=== PATIENT | female | born 1940 | race Caucasian/White ===

== ENCOUNTER → 2018-06-26 | Outpatient (CLI) | payer OTHER ==
[~2018-06-26] MED LIST: ASPI81CH; ATEN25; Hydrocodone-Ap1 EA20; LISI20; METF500C; NIACIN; PRAV20; Triamterene W/1 EACH
== END | disposition home or self-care (01) ==
LOC: LAB 12:00 → LAB SHORT 12:00
DX: R19.4 Change in bowel habit (principal)
CPT/HCPCS: 87493

== ENCOUNTER → 2018-11-29 | Outpatient (CLI) | payer OTHER ==
[~2018-11-29] MED LIST changes: +ASPI325 PO; +CHOL10002; +Vitamin C100 MG
[2018-12-02 14:06] LABS: Adenovirus F 40/41 Not Detected (NOT DETECT); Astrovirus Not Detected (NOT DETECT); Campylobacter Sp Not Detected (NOT DETECT); Cryptosporidium Not Detected (NOT DETECT); Cyclospora Cayetanensis Not Detected (NOT DETECT); E. Coli O157 Not Detected (NOT DETECT); Entamoeba Histolytica Not Detected (NOT DETECT); Enteroaggregative E. coli-EAEC Not Detected (NOT DETECT); Enteropathogenic E. coli-EPEC Not Detected (NOT DETECT); Enterotoxigenic E. coli-ETEC Not Detected (NOT DETECT); Giardia Lamblia Not Detected (NOT DETECT); Norovirus GI/GII Not Detected (NOT DETECT); Plesiomonas Shigelloides Not Detected (NOT DETECT); Rotavirus A Not Detected (NOT DETECT); Salmonella Sp Not Detected (NOT DETECT); Sapovirus Not Detected (NOT DETECT); Shiga Toxin-prod E. coli-STEC Not Detected (NOT DETECT); Shigella/Enteroin E. coli-EIEC Not Detected (NOT DETECT); Vibrio Cholerae Not Detected (NOT DETECT); Vibrio Sp Not Detected (NOT DETECT); Yersinia Enterocolitica Not Detected (NOT DETECT)
== END | disposition home or self-care (01) ==
LOC: LAB SHORT 11:30 → LAB 11:30 → LAB FUT 11-28 10:40
PROVIDERS: Internal Medicine Gastroenterology
DX: R19.7 Diarrhea, unspecified (principal)
CPT/HCPCS: 87507

== ENCOUNTER 2020-05-05 09:42 | Day surgery (SDC) | payer OTHER ==
[~2020-05-05] VITALS: Ht 170.2 cm; Wt 91.6 kg
[~2020-05-05 09:42] MED LIST changes: +Lopressor 25 mg25 MG PO; +PIOG30 PO
[2020-05-05] MEDS ORDERED: ASPI81CH PO (10:13)
== END 2020-05-05 11:56 | disposition home or self-care (01) ==
LOC: ORSCSDS 09:42
PROVIDERS: Orthopaedic Surgery
PROC: 3E0R33Z Introduction of Anti-inflammatory into Spinal Canal, Percutaneous Approach (ICD-10-PCS; principal; 2020-05-05 10:45)
DX: M54.5 Low back pain (principal); M54.16 Radiculopathy, lumbar region; I10 Essential (primary) hypertension; E66.9 Obesity, unspecified; Z68.32 Body mass index [BMI] 32.0-32.9, adult
CPT/HCPCS: 82947; J1040

== ENCOUNTER 2020-05-19 14:06 | Inpatient (IN) | payer OTHER ==
[~2020-05-19] VITALS: Ht 170.2 cm; Wt 93.6 kg
[~2020-05-19 14:06] MED LIST changes: +ASPI81CH PO
[2020-05-19 14:43] LABS: BASOPHILS ABSOLUTE AUTO 0.04 K/mm3 (0.00-0.23); BASOPHILS PERCENT AUTO 0 % (0-2); EOSINOPHILS ABSOLUTE AUTO 0.13 K/mm3 (0.00-0.68); EOSINOPHILS PERCENT AUTO 1 % (0-6); Hematocrit 42.5 % (33.0-51.0); Hemoglobin 12.9 g/dL (11.5-16.0); IMMATURE GRAN ABSOLUTE AUTO 0.03 K/mm3 (0.00-0.10); IMMATURE GRAN PERCENT AUTO 0 % (0-1); LYMPHOCYTES ABSOLUTE AUTO 1.51 K/mm3 (0.84-5.20); LYMPHOCYTES PERCENT AUTO 15 % (21-46); MONOCYTES ABSOLUTE AUTO 0.78 K/mm3 (0.16-1.47); MONOCYTES PERCENT AUTO 8 % (4-13); Mean Corpuscular HGB 28.7 pg (26.0-34.0); Mean Corpuscular HGB Conc 30.4 g/dL (31.5-36.5); Mean Corpuscular Volume 95 fL (80-100); Mean Platelet Volume 10.8 fL (9.1-12.4); NEUTROPHILS ABSOLUTE AUTO 7.67 K/mm3 (1.96-9.15); NEUTROPHILS PERCENT AUTO 75 % (41-73); Platelet Count 275 K/mm3 (150-400); RDW Standard Deviation 56.3 fL (35.1-46.3); Red Blood Cell Count 4.49 M/mm3 (3.80-5.20); White Blood Cell Count 10.16 K/mm3 (4.00-11.30)
[2020-05-19] MEDS ORDERED: ELIQUIS2.5 MG PO (14:48)
[2020-05-19 15:10] LABS: Free Thyroxine 1.2 ng/dL (0.70-1.60); Magnesium, Blood 2.2 mg/dL (1.6-2.4); Thyroid Stimulating Hormone 4.29 uIU/mL (0.360-4.800)
[2020-05-19 15:13] LABS: Alanine Aminotransfer (ALT/SGP 18 U/L (12-78); Albumin, Blood 2.6 g/dL (3.4-5.0); Albumin/Globulin Ratio 0.6 (0.8-1.8); Alk Phos 267 U/L (50-136); Anion Gap 7 mmol/L (6-16); Aspartate Aminotrans (AST/SGOT 35 U/L (12-37); Bilirubin, Total 0.4 mg/dL (0.1-1.0); Blood Urea Nitrogen 15 mg/dL (8-24); Bun/Creatinine Ratio 21.8 (12.0-20.0); CO2, Blood 26 mmol/L (21-32); Calcium, Blood 8.6 mg/dL (8.5-10.1); Chloride, Blood 110 mmol/L (98-108); Creatinine, Blood 0.69 mg/dL (0.40-1.00); Globulin, Blood 4.5 g/dL (2.2-4.0); Glomerular Filtration Rate >60 (60-); Glucose, Blood 150 mg/dL (70-99); Sodium, Blood 143 mmol/L (136-145); Total Protein, Blood 7.1 g/dL (6.4-8.2); Troponin I <0.015 ng/mL (0.000-0.040)
[2020-05-19 15:26] LABS: International Normalized Ratio 1.06; Prothrombin Time Results 11.3 Sec (9.7-11.5)
[2020-05-19] MEDS ORDERED: Pravastatin Sod80 MG PO (16:53)
[2020-05-19] MEDS ORDERED: ACTOS30 MG PO (16:54)
[2020-05-19] MEDS ORDERED: METOPROLOL TART25 MG PO (16:54)
[2020-05-19 19:24] LABS: Influenza A, PCR Negative (NEGATIVE); Influenza B, PCR Negative (NEGATIVE); Resp Syncytial Virus, PCR Negative (NEGATIVE); SARS-Cov-2 (COVID-19) PCR, MMC Negative (NEGATIVE)
--- NOTE | 2020-05-19 22:12 | NUR ---
PATIENT ARRIVED TO THE FLOOR AROUND 1999. SHE WAS ABLE TO TRANSFER TO THE BED SBA. LUIS IS AOX3, HAS BEEN HEALTHY MOST OF LIFE. STATES OVER THE PAST SEVERAL MONTHS SHE HAS NOTICED AN INCREASE IN FATIQUE, ABDOMINAL GIRTH, WEIGHT LOSS UP TO 65LBS, DECREASE IN APPETITE. OVER THE LAST WEEK SHE HAS BECOME MORE SOB. SHE WAS BROUGHT INTO ER TONIGHT DUE TO DIFFICULTY BREATHING. CT REVEALED METASTATIC LIVER CANCER WITH ABDOMINAL ACITES. ABDOMIN GIRTH IS LARGE ROUND AND TENDER AT TIMES, PRESSES UP INTO THE LUNG SPACE. REPORTS NO NAUSEA, REGULAR BM AND URINATION. LUNG SOUNDS ARE CLEAR DIMINISHED IN BASES. ON RA. VS WNL. DENIES PAIN. ABLE TO STILL MOVE AROUND JUST SOB WHEN DOING SO. SKIN SLIGHTLY DRY BUT INTACT, NO RASHES NOTED. HR REGULAR. GAVE HER SOME SUGAR FREE JELLOW AND WATER. SETTLED HER INTO THE ROOM. WILL CONITINUE TO MONITOR. CALL LIGHT IN REACH.
--- NOTE | 2020-05-20 04:34 | NUR ---
SHIFT SUMMARY: LUIS WAS ADMITTED FOR METASTATIC LIVER CANCER. ABDOMINAL GIRTH HAS INCREASED OVER THE LAST WEEK WITH INCREASE IN SOB. ABDOMIN IS FIRM, TENDER, AND PRESSING UP INTO LUNGS. LUNG SOUNDS DIMINISHED IN BASES. TELE IS SINUS WITH PVC'S. NO CHEST PAIN. NO PAIN. SBA TO THE BATHROOM. REGULAR BM AND URINATION. GAVE BM MEDS AND SHE WENT TO SLEEP FOR THE NIGHT. VS WNL, AFEBRILE. PLAN: US GUIDED PARACENTESIS, EVAL OF FLUID, ONCOLOGIST CONSULT, MONITOR CHEM BG, LABS, VS. PALLATIVE CARE CONSULT. REVIEW WITH .
[2020-05-20 04:56] LABS: BASOPHILS ABSOLUTE AUTO 0.05 K/mm3 (0.00-0.23); BASOPHILS PERCENT AUTO 1 % (0-2); EOSINOPHILS ABSOLUTE AUTO 0.18 K/mm3 (0.00-0.68); EOSINOPHILS PERCENT AUTO 2 % (0-6); Hematocrit 39.5 % (33.0-51.0); Hemoglobin 12.1 g/dL (11.5-16.0); IMMATURE GRAN ABSOLUTE AUTO 0.03 K/mm3 (0.00-0.10); IMMATURE GRAN PERCENT AUTO 0 % (0-1); LYMPHOCYTES ABSOLUTE AUTO 1.66 K/mm3 (0.84-5.20); LYMPHOCYTES PERCENT AUTO 19 % (21-46); MONOCYTES ABSOLUTE AUTO 0.83 K/mm3 (0.16-1.47); MONOCYTES PERCENT AUTO 10 % (4-13); Mean Corpuscular HGB 28.5 pg (26.0-34.0); Mean Corpuscular HGB Conc 30.6 g/dL (31.5-36.5); Mean Corpuscular Volume 93 fL (80-100); Mean Platelet Volume 10.9 fL (9.1-12.4); NEUTROPHILS ABSOLUTE AUTO 5.99 K/mm3 (1.96-9.15); NEUTROPHILS PERCENT AUTO 69 % (41-73); Platelet Count 240 K/mm3 (150-400); RDW Standard Deviation 54.8 fL (35.1-46.3); Red Blood Cell Count 4.24 M/mm3 (3.80-5.20); White Blood Cell Count 8.74 K/mm3 (4.00-11.30)
[2020-05-20 05:17] LABS: Alanine Aminotransfer (ALT/SGP 16 U/L (12-78); Albumin, Blood 2.4 g/dL (3.4-5.0); Albumin/Globulin Ratio 0.6 (0.8-1.8); Alk Phos 235 U/L (50-136); Anion Gap 6 mmol/L (6-16); Aspartate Aminotrans (AST/SGOT 30 U/L (12-37); Bilirubin, Total 0.5 mg/dL (0.1-1.0); Blood Urea Nitrogen 13 mg/dL (8-24); CO2, Blood 26 mmol/L (21-32); Calcium, Blood 8.5 mg/dL (8.5-10.1); Chloride, Blood 110 mmol/L (98-108); Creatinine, Blood 0.65 mg/dL (0.40-1.00); Globulin, Blood 4.2 g/dL (2.2-4.0); Glomerular Filtration Rate >60 (60-); Glucose, Blood 117 mg/dL (70-99); Magnesium, Blood 2.2 mg/dL (1.6-2.4); Potassium, Blood 3.9 mmol/L (3.5-5.5); Sodium, Blood 142 mmol/L (136-145); Total Protein, Blood 6.6 g/dL (6.4-8.2)
[2020-05-20 05:27] LABS: Source, Urine Clean Catch
[2020-05-20 05:29] LABS: Bilirubin, Urine Neg (Neg); Blood, Urine Neg (Neg); Glucose Qualitative, Urine Neg (Neg); Ketones, Urine Neg (Neg); Leukocyte Esterase, Urine 1+ (Neg); Nitrite, Urine Neg (Neg); Protein, Urine 2+ (Neg); Specific Gravity, Urine 1.015 (1.003-1.022); Urobilinogen, Urine NORM (Normal); pH, Urine 6.5 (5.0-8.0)
[2020-05-20 05:44] LABS: Appearance, Urine Clear (Clear); Color, Urine Yellow (P-Yellow); White Blood Cells, Urine 0-2 /hpf (0-5)
[2020-05-20 05:45] LABS: Bacteria Rare /hpf; Red Blood Cells, Urine 0-2 /hpf (0-2); Squamous Epithelial Cells Few /hpf (Few); Transitional Epithelial Cells Few /hpf (0-Rare)
[2020-05-20 08:24] LABS: International Normalized Ratio 1.05; Prothrombin Time Results 11.2 Sec (9.7-11.5)
[2020-05-20 11:00] LABS: Automated BF WBC Count 0.936 K/mm3 (0-999); Body Fluid WBC Count 936 /mm3 (0-999)
[2020-05-20 11:12] LABS: Albumin, Body Fluid 1.2 g/dL
[2020-05-20 11:16] LABS: pH, Body Fluid 7.9
[2020-05-20 11:20] LABS: Triglycerides, Body Fluid 31 mg/dL
[2020-05-20 11:26] LABS: Protein, Body Fluid 2.5 g/dL
[2020-05-20 11:33] LABS: Glucose, Body Fluid 171 mg/dL
[2020-05-20 11:35] LABS: Lactate Dehydrogenase, Body Fl 79 U/L
--- NOTE | 2020-05-20 11:38 | NUR ---
DISCHARGE PT STATE FEELING IMPROVED THIS AM, STATE FEELS READY TO GO HOME TODAY. ISTRATE IN TO ASSESS, PLACE ORDERS. SET AND EXHIBIT DESIGNER IN TO SEE HER ENCOURAGE HER TO CALL [facility] FOR HER . D/C INSTRUCT PROVIDED. SCRIPTS FAXED TO [facility]. IV D/C INTACT. PT DRESS/GATHER BELONGINGS IND. DECLINE SHOWER. SHE IS PLEASANT/APPRECIATIVE. ENROUTE TO PROVIDE TRANSPORTATION HOME. W/C ESCORT FROM HOSP PROVIDED.
[2020-05-20 11:57] LABS: RBC Count, Body Fluid 763 /mm3 (0-0)
[2020-05-20 12:01] LABS: Total Cell Count, Body Fluid 100
[2020-05-20 12:02] LABS: Appearance, Body Fluid Hazy (Clear); Color, Body Fluid L Yellow (None-Yellow)
--- NOTE | 2020-05-20 14:17 | NUR ---
Spiritual care visit conducted. Patient is sitting on EOB and alert. Patient immediately explains about her recent diagnosis, the rough conversations she has had this day with her children and grandchildren and the difficulty she is having processing all the information. Patient gets tearful at times as she talks about her fears and worries but also discusses her jeramy to which she leans to find strength and peace. I reinforce helpful attitudes and practices, normalize patient's experience, and provide inspirational scriptures, pastoral psychosocial rehabilitation counselor and prayer. Patient's spouse, [place], joins us at the end of the visit for the prayer. Patient responds well and shows signs of reduced stress and improved hope. I will continue to remain avialable to patient and family
--- NOTE | 2020-05-20 17:19 | NUR ---
SUMMARY PT IS A/O X4, PLEASANT AFFECT. THIS AM SHE STATE ABDOMINAL PRESSURE & SOME DIFFICULTY TAKING FULL BREATHS D/T ABD DISTENTION. SHE WENT OUT TO RADIOLOGY FOR PARACENTESIS, 1.25L ASCITES FLUID REMOVED, SAMPLE SENT TO LAB. SHE STATE SOME RELEIF FOLLOWING PROCEDURE. DR ZAIDI IN TO DISCUSS POSSIBLE CA DX. DR GRANGER IN FOR ONCOLOGY CONSULT. ORDER CT HEAD & CHEST, LIVER BIOPSY. BIOPSY WILL TAKE PLACE IN AM. IN TO VISIT, PT PROVIDED UPDATE FOR FAMILY. SHE HAS HAD EMOTIONAL MOMENTS TODAY, REASSURANCE PROVIDED. PALLIATIVE & PASTORAL CARE CONSULTS ARE ORDERED FOR SUPPORT. VSS.
--- NOTE | 2020-05-20 18:40 | NUR ---
[address] [facility] [place] [facility]--DID NOT TRANSFER TO INTERNET
--- NOTE | 2020-05-20 20:23 | NUR ---
ASSUMED CARE. LUIS APPEARS TO BE DOWN A LITTLE WITH THE DX OF CANCER. ENCOURAGED HER TO KEEP POSITIVE THOUGHTS. SHE IS HOPING TO GO HOME AFTER TOMORROWS BIOPSY. SHE IS NOT SURE WHAT SHE IS GOING TO DO ABOUT THE CANCER, HER AND HER ARE DISCUSSING THE SITUATION. SHE DOES FEEL BETTER AFTER SHE HAD THE FLUID REMOVED. STATES SHE IS ABLE TO LAY FLAT ANG BREATH. LUNG SOUNDS ARE CLEAR. HR SINUS AT THIS TIME WITH PVC. DENIES ANY CHEST PAIN OR PALPITATIONS. BLOOD SUGAR STABLE. VS WNL. CALL LIGHT IN REACH.
[2020-05-21 05:09] LABS: BASOPHILS ABSOLUTE AUTO 0.06 K/mm3 (0.00-0.23); BASOPHILS PERCENT AUTO 1 % (0-2); EOSINOPHILS ABSOLUTE AUTO 0.11 K/mm3 (0.00-0.68); EOSINOPHILS PERCENT AUTO 1 % (0-6); Hematocrit 38.7 % (33.0-51.0); Hemoglobin 11.9 g/dL (11.5-16.0); IMMATURE GRAN ABSOLUTE AUTO 0.02 K/mm3 (0.00-0.10); IMMATURE GRAN PERCENT AUTO 0 % (0-1); LYMPHOCYTES ABSOLUTE AUTO 1.37 K/mm3 (0.84-5.20); LYMPHOCYTES PERCENT AUTO 16 % (21-46); MONOCYTES ABSOLUTE AUTO 0.66 K/mm3 (0.16-1.47); MONOCYTES PERCENT AUTO 8 % (4-13); Mean Corpuscular HGB 29.2 pg (26.0-34.0); Mean Corpuscular HGB Conc 30.7 g/dL (31.5-36.5); Mean Corpuscular Volume 95 fL (80-100); Mean Platelet Volume 11.1 fL (9.1-12.4); NEUTROPHILS ABSOLUTE AUTO 6.32 K/mm3 (1.96-9.15); NEUTROPHILS PERCENT AUTO 74 % (41-73); Platelet Count 211 K/mm3 (150-400); RDW Coefficient Variation 15.9 % (11.7-14.2); RDW Standard Deviation 56.1 fL (35.1-46.3); Red Blood Cell Count 4.08 M/mm3 (3.80-5.20); White Blood Cell Count 8.54 K/mm3 (4.00-11.30)
[2020-05-21 05:36] LABS: Alanine Aminotransfer (ALT/SGP 16 U/L (12-78); Albumin, Blood 2.3 g/dL (3.4-5.0); Albumin/Globulin Ratio 0.6 (0.8-1.8); Alk Phos 236 U/L (50-136); Anion Gap 6 mmol/L (6-16); Aspartate Aminotrans (AST/SGOT 28 U/L (12-37); Bilirubin, Total 0.4 mg/dL (0.1-1.0); Blood Urea Nitrogen 15 mg/dL (8-24); Bun/Creatinine Ratio 19.3 (12.0-20.0); CO2, Blood 26 mmol/L (21-32); Calcium, Blood 8.3 mg/dL (8.5-10.1); Chloride, Blood 109 mmol/L (98-108); Creatinine, Blood 0.78 mg/dL (0.40-1.00); Glomerular Filtration Rate >60 (60-); Glucose, Blood 122 mg/dL (70-99); Potassium, Blood 4.3 mmol/L (3.5-5.5); Sodium, Blood 141 mmol/L (136-145); Total Protein, Blood 6.3 g/dL (6.4-8.2)
--- NOTE | 2020-05-21 06:02 | NUR ---
SHIFT SUMMARY: AOX3, INDEPENDENT IN ROOM. ABDOMIN STILL ROUND BUT SOFTER THEN PREVIOUS DAY. NO PAIN. ABLE TO LAY FLAT AND MOVE WITH OUT SOB. APPETITE IS IMPROVED SOME. HAS NOT DECIDED HER ACTION PLAN FOR THE CANCER YET. STILL DISCUSSING IT WITH HER . IV AB COMPLETED, IV SL. SLEPT REST OF SHIFT WITH OCCATIONAL AWAKING. VS WNL, AFEBRILE. CALL LIGHT HAS REMAINED IN REACH. PLAN IS LIVER BIOPSY TODAY, FOLLOWUP WITH ONCOLOGIST.
--- NOTE | 2020-05-21 11:54 | NUR ---
AM ASSESSMENT PT IS NPO X MEDS/ICE CHIPS FOR LIVER BIOPSY TODAY. SHE IS PLEASANT, STATE ABD CONTINUES FIRM/DISTENDED HOWEVER NO PAIN, NO NAUSEA. DR FAULKNERTRATE STATE OK FOR HER TO D/C HOME 2HRS AFTER PROCEDURE, PLACE ORDERS. VSS.
--- NOTE | 2020-05-21 14:19 | NUR ---
Spiritual care visit conducted. Patient tells me that she will be going in for a biopsy in a few minutes. After patient catches me up on the events oflast evening and night, I ask patient if I could say a prayer for her and she voices that a prayer would be greatly appreciated. I gladly provide prayer. Patient reponds well and shows signs of reduced stress. I will continue to remain available to patient and family.
[2020-05-21] MEDS ORDERED: ACET325 PO (16:17)
[2020-05-21] MEDS ORDERED: LEVFLO500 PO (16:20)
[2020-05-21] MEDS ORDERED: FAMO20 PO (16:20)
[2020-05-21] MEDS ORDERED: AZO CRANBERRY PO (16:22)
[2020-05-21] MEDS ORDERED: HYDR1TAB94 PO (16:23)
[2020-05-21] MEDS ORDERED: ONDA4ODT MM (16:25)
--- NOTE | 2020-05-21 18:22 | NUR ---
SUMMARY THIS AM PT NPO FOR LIVER BIOPSY, SHE HAD PROCEDURE APPROX 1400. DR ZAIDI HAD INITIALLY PLANNED FOR HER TO GO HOME FOLLOWING HOWEVER RECONSIDER, HOLD D/C & OVERNITE TO ASSURE STABLE FOLLOWING BIOPSY. STATE WILL REASSESS PT IN AM & FOR SAFE D/C. VSS HAVE BEEN STABLE. SHE IS A/O X4, PLEASANT/COOPERATIVE. UP IND TO BR, GAIT STEADY. STATES ABDOMEN CONTINUES DISTENDED/FIRM HOWEVER MUCH IMPROVED FROM PREVIOUS DAY, EASIER TO BREATHE, LESS FEELING OF FULLNESS. SHE HAS HAD APPETITE TODAY W/O NAUSEA. SHE IS HOPEFUL FOR D/C IN AM AFTER DR ROSADO. IN TO VISIT THIS AFTERNOON, UPDATED.
--- NOTE | 2020-05-21 21:37 | NUR ---
ASSUMED CARE. LUIS STATES SHE IS DOING OK. SHE STILL CAN'T BELEIVE SHE HAS BEEN DX WITH CANCER. SHE STATED THAT SHE STILL FEELS LIKE DR. GRANGER IS GOING TO COME BACK AND TELL HER HE WAS WRONG. SHE MENTIONED SHE HAS ALOT OF SUPPORT FROM FAMILY AND FRIENDS. SOME PEOPLE HAVE TALKED TO HER ABOUT NATURAL WAYS. SHE IS JUST NOT SURE WHAT TO DO WITH SELF AT THIS TIME. SHE TRIES TO HOLD A GOOD SPIRIT BUT YOU CAN SEE IT IN HER FACE THAT SHE IS JUST HOLDING IT ALL IN. SHE DENIED ANY PAIN OR DISCOMFORT. STATES SHE IS FEELING MUCH BETTER THEN SHE HAS BEEN. DID SPEAK TO DR. ZAIDI REGARDING A SLEEP AID. GOT TYLENOL PM SHE TAKES IT AT HOME. ADMINISTERED WITH NIGHT MEDS. NO OTHER NEEDS TO NOTE. CALL LIGHT IS IN REACH.
[2020-05-22 04:49] LABS: BASOPHILS ABSOLUTE AUTO 0.03 K/mm3 (0.00-0.23); BASOPHILS PERCENT AUTO 0 % (0-2); EOSINOPHILS ABSOLUTE AUTO 0.16 K/mm3 (0.00-0.68); EOSINOPHILS PERCENT AUTO 2 % (0-6); Hematocrit 38.8 % (33.0-51.0); Hemoglobin 11.6 g/dL (11.5-16.0); IMMATURE GRAN ABSOLUTE AUTO 0.04 K/mm3 (0.00-0.10); IMMATURE GRAN PERCENT AUTO 1 % (0-1); LYMPHOCYTES ABSOLUTE AUTO 1.43 K/mm3 (0.84-5.20); LYMPHOCYTES PERCENT AUTO 17 % (21-46); MONOCYTES ABSOLUTE AUTO 0.86 K/mm3 (0.16-1.47); MONOCYTES PERCENT AUTO 10 % (4-13); Mean Corpuscular HGB 28.2 pg (26.0-34.0); Mean Corpuscular HGB Conc 29.9 g/dL (31.5-36.5); Mean Corpuscular Volume 94 fL (80-100); NEUTROPHILS PERCENT AUTO 70 % (41-73); Platelet Count 204 K/mm3 (150-400); RDW Coefficient Variation 16.1 % (11.7-14.2); RDW Standard Deviation 56.2 fL (35.1-46.3); Red Blood Cell Count 4.11 M/mm3 (3.80-5.20); White Blood Cell Count 8.42 K/mm3 (4.00-11.30)
[2020-05-22 05:12] LABS: Alanine Aminotransfer (ALT/SGP 19 U/L (12-78); Albumin, Blood 2.3 g/dL (3.4-5.0); Albumin/Globulin Ratio 0.6 (0.8-1.8); Alk Phos 236 U/L (50-136); Anion Gap 6 mmol/L (6-16); Aspartate Aminotrans (AST/SGOT 37 U/L (12-37); Bilirubin, Total 0.3 mg/dL (0.1-1.0); Blood Urea Nitrogen 19 mg/dL (8-24); Bun/Creatinine Ratio 22.4 (12.0-20.0); CO2, Blood 26 mmol/L (21-32); Calcium, Blood 8.7 mg/dL (8.5-10.1); Chloride, Blood 109 mmol/L (98-108); Creatinine, Blood 0.85 mg/dL (0.40-1.00); Glomerular Filtration Rate >60 (60-); Glucose, Blood 101 mg/dL (70-99); Potassium, Blood 4.1 mmol/L (3.5-5.5); Sodium, Blood 141 mmol/L (136-145); Total Protein, Blood 6.3 g/dL (6.4-8.2)
--- NOTE | 2020-05-22 05:25 | NUR ---
SHIFT SUMMARY: LUIS TRIED TO GET SLEEP TONIGHT, EVEN TOOK BOTH OF HER TYLENOL PM BUT SHE COULD NOT SLEEP STEADLY. SHE FELL ASLEEP FOR SEVERAL HOURS THEN WAS UP AGAIN. SHE IS REALLY LOOKING FORWARD TO DISCHARGE THIS MORNING AFTER MD SEE'S HER. SHE DISCUSSED HAVING GOOD FAMILY AND FRIEND SUPPORT FOR WHEN SHE GOES HOME. SHE IS STILL IN DISBELEIF THAT SHE HAS CANCER. SHE STATED LAST NIGHT THAT SHE STILL FEELS DR. GRANGER WILL COME BACK AND SAY HE WAS WRONG SHE DOES NOT HAVE IT. ENCOURAGED HER TO DISCUSS THINGS WITH HIM ON QUESTIONS SHE HAS LIKE JUST HAW BAD IT IS, WHATS HER OPTIONS. VS HAVE REMAINED STABLE. SHE HAD NO ACUTE CHANGES. ABDOMIN REMAINS THE SAME WITH MODERATE DISTENTION, FIRMNESS, NO NAUSEA. CALL LIGHT HAS REMAINED IN REACH. PLAN IS DC HOME TODAY.
[2020-05-22] MEDS ORDERED: ROBITUSSIN DM PO (10:44)
[2020-05-22] MEDS ORDERED: XARELTO20 MG PO (10:46)
--- NOTE | 2020-05-22 10:54 | NUR ---
Clinical Visit: Pt is alert, oriented, pleasant. She reports she is feeling much better and she is going home today. She expresses shock and dismay at her diagnosis and states, "I hope it is not what they say it is. I don't feel like I have cancer." She is not reporting pain. Pt reports that she has an advance directive at home. Encouraged to bring to the hospital if she returns for treatment later. Instructed that it is a good instrument for her family to have for her. She agrees. Pt reports that she has several friends and family members to support her though this. She has a and a daughter locally, along with her many friends. She has been talking to several of them during her hospitalization. No other concerns from her. Her biggest concern is her new cancer diagnosis. Will remain available. Pt is discharging home today.
--- NOTE | 2020-05-22 11:04 | NUR ---
PT DISCHARGED AND LEFT THE UNIT VIA WHEELCHAIR ASSIST, ALERT AND OEITNTED WITH NO COMPLAINTS OF PAIN OR SOB. LINES WERE DC'D AND WNL. PT EDUCATED ON SS TO LOOK OUT FOR AND WHEN TO REPORT TO ED. PT EDUCATED ON FU APPOINTMENTS AND HOME HEALTH CONSULT. PAPER SCRIPT PROVIDED AND BELOGINGS WITH PT.
== END 2020-05-22 11:01 | disposition home health service (06) | DRG 435 ==
LOC: ER 14:06 → MEDS 19:56
PROVIDERS: Emergency Medicine; Internal Medicine Hematology & Oncology; Physician Assistant; ADMIT Family Medicine
PROC: 0W9G3ZZ Drainage of Peritoneal Cavity, Percutaneous Approach (ICD-10-PCS; principal; 2020-05-20)
PROC: 0FB23ZX Excision of Left Lobe Liver, Percutaneous Approach, Diagnostic (ICD-10-PCS; 2020-05-21)
DX: C78.7 Secondary malignant neoplasm of liver and intrahepatic bile duct (principal); J96.01 Acute respiratory failure with hypoxia; J18.9 Pneumonia, unspecified organism; R18.0 Malignant ascites; I48.20 Chronic atrial fibrillation, unspecified; Z51.5 Encounter for palliative care; I10 Essential (primary) hypertension; E11.9 Type 2 diabetes mellitus without complications; Z20.828 Contact with and (suspected) exposure to other viral communicable diseases; Z79.84 Long term (current) use of oral hypoglycemic drugs
CPT/HCPCS: 0241U; 36415; 47000; 49083; 70470; 71045; 71260; 74177; 77012; 80053; 81001; 82042; 82105; 82140; 82378; 82945; 82947; 83605; 83615; 83735; 83880; 83986; 84145; 84157; 84439; 84443; 84478; 84484; 85025; 85610; 85730; 86301; 86304; 87086; 88307; 88342; 89051; 93005; 93010; 97162; 97165; 97530; 99285-25; A9270-GY; J1956; J2405; J7030; Q9967

== ENCOUNTER 2020-06-16 16:52 | Emergency (ER) | payer OTHER ==
[~2020-06-16] VITALS: Ht 170.2 cm; Wt 86.2 kg
[~2020-06-16 16:52] MED LIST changes: +ACET325 PO; +ACTOS30 MG PO; +AZO CRANBERRY PO; +ELIQUIS2.5 MG PO; +FAMO20 PO; +HYDR1TAB94 PO; +LEVFLO500 PO; +METOPROLOL TART25 MG PO; +ONDA4ODT MM; +Pravastatin Sod80 MG PO; +ROBITUSSIN DM PO; +XARELTO20 MG PO
[2020-06-16] MEDS ORDERED: XARELTO15 MG PO (17:51)
== END 2020-06-16 18:46 | disposition home or self-care (01) ==
LOC: ER 16:52
DX: I26.99 Other pulmonary embolism without acute cor pulmonale (principal); C78.7 Secondary malignant neoplasm of liver and intrahepatic bile duct; C80.1 Malignant (primary) neoplasm, unspecified; I48.91 Unspecified atrial fibrillation; E11.9 Type 2 diabetes mellitus without complications; I10 Essential (primary) hypertension; Z79.01 Long term (current) use of anticoagulants; Z79.899 Other long term (current) drug therapy
CPT/HCPCS: 36415; 71260; 74177; 80053; 82105; 82378; 83880; 84484; 85025; 85610; 86301; 93005; 93010; 99283-25; A9270; Q9967

== ENCOUNTER 2020-06-25 13:00 | Day surgery (SDC) | payer OTHER ==
[~2020-06-25] VITALS: Ht 170.2 cm; Wt 88.4 kg
[~2020-06-25 13:00] MED LIST changes: +XARELTO15 MG PO
[2020-06-25] MEDS ORDERED: XARELTO15 MG PO (13:42)
[2020-06-25] MEDS ORDERED: ABAT250V (13:42)
== END 2020-06-25 15:20 | disposition home or self-care (01) ==
LOC: ORSCSDS 13:00
PROVIDERS: Internal Medicine Gastroenterology
PROC: 0DB58ZX Excision of Esophagus, Via Natural or Artificial Opening Endoscopic, Diagnostic (ICD-10-PCS; principal; 2020-06-25 14:15)
PROC: 0DB78ZX Excision of Stomach, Pylorus, Via Natural or Artificial Opening Endoscopic, Diagnostic (ICD-10-PCS; principal; 2020-06-25 14:15)
DX: C79.9 Secondary malignant neoplasm of unspecified site (principal); K21.9 Gastro-esophageal reflux disease without esophagitis; K29.70 Gastritis, unspecified, without bleeding; I10 Essential (primary) hypertension; E11.9 Type 2 diabetes mellitus without complications; Z79.01 Long term (current) use of anticoagulants; Z79.899 Other long term (current) drug therapy
CPT/HCPCS: 82947; 88305; 88342; J2704; J7120

== ENCOUNTER 2020-08-10 13:43 | Observation (INO) | payer OTHER ==
[~2020-08-10] VITALS: Ht 170.2 cm; Wt 89.1 kg
[~2020-08-10 13:43] MED LIST changes: +ABAT250V
[2020-08-10 14:30] LABS: BASOPHILS ABSOLUTE AUTO 0.04 K/mm3 (0.00-0.23); BASOPHILS PERCENT AUTO 1 % (0-2); EOSINOPHILS ABSOLUTE AUTO 0.07 K/mm3 (0.00-0.68); EOSINOPHILS PERCENT AUTO 1 % (0-6); Hematocrit 37.6 % (33.0-51.0); Hemoglobin 11.8 g/dL (11.5-16.0); IMMATURE GRAN ABSOLUTE AUTO 0.04 K/mm3 (0.00-0.10); IMMATURE GRAN PERCENT AUTO 1 % (0-1); LYMPHOCYTES ABSOLUTE AUTO 0.86 K/mm3 (0.84-5.20); LYMPHOCYTES PERCENT AUTO 12 % (21-46); MONOCYTES ABSOLUTE AUTO 0.46 K/mm3 (0.16-1.47); MONOCYTES PERCENT AUTO 7 % (4-13); Mean Corpuscular HGB 28.4 pg (26.0-34.0); Mean Corpuscular HGB Conc 31.4 g/dL (31.5-36.5); Mean Corpuscular Volume 91 fL (80-100); Mean Platelet Volume 10.3 fL (9.1-12.4); NEUTROPHILS ABSOLUTE AUTO 5.57 K/mm3 (1.96-9.15); NEUTROPHILS PERCENT AUTO 79 % (41-73); Platelet Count 133 K/mm3 (150-400); RDW Coefficient Variation 17.9 % (11.7-14.2); RDW Standard Deviation 57.7 fL (35.1-46.3); Red Blood Cell Count 4.15 M/mm3 (3.80-5.20); White Blood Cell Count 7.04 K/mm3 (4.00-11.30)
[2020-08-10 14:47] LABS: Alanine Aminotransfer (ALT/SGP 14 U/L (12-78); Albumin, Blood 2.4 g/dL (3.4-5.0); Albumin/Globulin Ratio 0.6 (0.8-1.8); Alk Phos 235 U/L (50-136); Anion Gap 9 mmol/L (6-16); Aspartate Aminotrans (AST/SGOT 35 U/L (12-37); Bilirubin, Total 0.7 mg/dL (0.1-1.0); Blood Urea Nitrogen 15 mg/dL (8-24); Bun/Creatinine Ratio 25.1 (12.0-20.0); CO2, Blood 25 mmol/L (21-32); Calcium, Blood 8.4 mg/dL (8.5-10.1); Chloride, Blood 107 mmol/L (98-108); Globulin, Blood 3.9 g/dL (2.2-4.0); Glomerular Filtration Rate >60 (60-); Glucose, Blood 99 mg/dL (70-99); Sodium, Blood 141 mmol/L (136-145); Total Protein, Blood 6.3 g/dL (6.4-8.2)
[2020-08-10 17:09] LABS: Source, Urine Voided
[2020-08-10 17:17] LABS: Appearance, Urine Clear (Clear); Bilirubin, Urine Neg (Neg); Blood, Urine 1+ (Neg); Color, Urine Yellow (P-Yellow); Glucose Qualitative, Urine Neg (Neg); Ketones, Urine 3+ (Neg); Leukocyte Esterase, Urine Neg (Neg); Nitrite, Urine Neg (Neg); Protein, Urine Neg (Neg); Urobilinogen, Urine NORM (Normal); pH, Urine 6.5 (5.0-8.0)
[2020-08-10 17:38] LABS: Bacteria Rare /hpf; Red Blood Cells, Urine 0-2 /hpf (0-2); Squamous Epithelial Cells Not Seen /hpf (Few)
[2020-08-10 19:36] LABS: PO2 Arterial 86.1 mmHg (80-100); pH Blood Arterial 7.39 (7.35-7.45)
[2020-08-10] MEDS ORDERED: DEXA4 PO (19:57)
[2020-08-10] MEDS ORDERED: OXYC5 PO (19:58)
[2020-08-10] MEDS ORDERED: ONDA8 PO (20:10)
--- NOTE | 2020-08-11 02:31 | NUR ---
GI/PAIN: PATIENT VOMITED 200ML BRIGHT YELLOW EMESIS. PATIENT IS ALSO REPORTING BACK PAIN BUT ORAL OXYCODONE IS THE ONLY PAIN MED ORDERED, A CALL IS PLACED TO DR MONGE.
--- NOTE | 2020-08-11 03:09 | NUR ---
GI/PAIN: ORDERS WERE OBTAINED FOR FENTANYL AND ZOFRAN. BOTH MEDS WERE GIVEN, PATIENT REPORTING GOOD EFFECT FROM FENTANYL.
[2020-08-11 04:57] LABS: BASOPHILS ABSOLUTE AUTO 0.03 K/mm3 (0.00-0.23); BASOPHILS PERCENT AUTO 0 % (0-2); EOSINOPHILS ABSOLUTE AUTO 0.02 K/mm3 (0.00-0.68); EOSINOPHILS PERCENT AUTO 0 % (0-6); Hematocrit 37.1 % (33.0-51.0); Hemoglobin 11.6 g/dL (11.5-16.0); IMMATURE GRAN ABSOLUTE AUTO 0.04 K/mm3 (0.00-0.10); IMMATURE GRAN PERCENT AUTO 1 % (0-1); LYMPHOCYTES ABSOLUTE AUTO 1.26 K/mm3 (0.84-5.20); LYMPHOCYTES PERCENT AUTO 16 % (21-46); MONOCYTES ABSOLUTE AUTO 0.62 K/mm3 (0.16-1.47); MONOCYTES PERCENT AUTO 8 % (4-13); Mean Corpuscular HGB 28.1 pg (26.0-34.0); Mean Corpuscular HGB Conc 31.3 g/dL (31.5-36.5); Mean Corpuscular Volume 90 fL (80-100); Mean Platelet Volume 10.1 fL (9.1-12.4); NEUTROPHILS ABSOLUTE AUTO 5.85 K/mm3 (1.96-9.15); NEUTROPHILS PERCENT AUTO 75 % (41-73); Platelet Count 140 K/mm3 (150-400); RDW Coefficient Variation 18.1 % (11.7-14.2); RDW Standard Deviation 57.5 fL (35.1-46.3); Red Blood Cell Count 4.13 M/mm3 (3.80-5.20); White Blood Cell Count 7.82 K/mm3 (4.00-11.30)
[2020-08-11 05:29] LABS: Alanine Aminotransfer (ALT/SGP 14 U/L (12-78); Albumin, Blood 2.3 g/dL (3.4-5.0); Albumin/Globulin Ratio 0.6 (0.8-1.8); Alk Phos 216 U/L (50-136); Anion Gap 9 mmol/L (6-16); Aspartate Aminotrans (AST/SGOT 27 U/L (12-37); Bilirubin, Total 0.7 mg/dL (0.1-1.0); Blood Urea Nitrogen 16 mg/dL (8-24); Bun/Creatinine Ratio 21.2 (12.0-20.0); CO2, Blood 25 mmol/L (21-32); Calcium, Blood 8.2 mg/dL (8.5-10.1); Chloride, Blood 106 mmol/L (98-108); Creatinine, Blood 0.76 mg/dL (0.40-1.00); Glomerular Filtration Rate >60 (60-); Glucose, Blood 99 mg/dL (70-99); Potassium, Blood 4.1 mmol/L (3.5-5.5); Sodium, Blood 140 mmol/L (136-145); Total Protein, Blood 6.3 g/dL (6.4-8.2)
--- NOTE | 2020-08-11 08:00 | NUR ---
SHIFT SUMMARY: PATIENT HAD GOOD EFFECT FROM REGLAN AND FENTANYL. SLEPT THROUGHT THE SHIFT UNTIL MORNING AND REPORTED NAUSEA WAS RESOLVE UP AWAKENING. ABLE TO TRANSFER TO THE BATHROOM WITH GAIT BELT AND ASSIST OF ONE. BED ALARM IS ON FOR SAFETY.
--- NOTE | 2020-08-11 09:10 | NUR ---
Pt resting in bed upon arrival. Caremanager Korinaniyah at bedside assessing Pt. Listened as Lakisha asks questions. After Korinjessieissa leaves this RN remained behind. Pt appears lethargic and denies anxiety and dyspnea. Shortly into visit Pt reports mild headache and mild nausea due to the sun light. Closed curtins per Pt request. Pt denies need for anti nausea or pain medication at this time. Pt reports living at home with her spouse. Spouse does the house hold chores including cooking and cleaning. Pt reports ability to ambulate through the home independently. Pt reports having grandchildren who are available if needed. Pt reports receiving 3 rounds of chemo up to this point. Pt reports not tolerating treatment well and still experiences pain in her abdomen in the area of her liver. Discussed the importance of developing multiple plans regarding her cancer. Educated on the potential need for assistance with careneeds as cancer progresses. Discussed the considering hospice at somepoint throughout the disease process. Pt reports plan for imaging on Sunday to determine if cancer is responding to current treatment. Continued therapeutic visit. Pt expresses appreciation of visit and reports no other concerns at this time. Palliative Care will remain available for therapeutic visits and symptom management.
[2020-08-11] MEDS ORDERED: ONDA4ODT MM (10:47)
--- NOTE | 2020-08-11 15:07 | NUR ---
DISCHARGE PT DISCHARGED HOME. CAME UP TO ROOM AND BROUGHT CLOTHES FOR PT TO CHANGE INTO. PT FELT NAUSEOUS AND WAS GIVEN PRN ZOFRAN BEFOR BEING DISCHARGED. WENT OVER DC PACKET WITH PT. TOOK OUT IV. TICKER INSTALLER TOOK PT DOWN TO EXIT IN WHEELCHAIR WITH . PT AND DID NOT HAVE ANY QUESTIONS ABOUT DC PACKET. PT MADE AWARE OF FOLLOW UP APPOINTMET.
== END 2020-08-11 14:17 | disposition home or self-care (01) ==
LOC: ER 13:43 → MEDS 13:44
PROVIDERS: Emergency Medicine; Nurse Practitioner Acute Care; Physician Assistant; ADMIT Internal Medicine
DX: R11.2 Nausea with vomiting, unspecified (principal); C78.7 Secondary malignant neoplasm of liver and intrahepatic bile duct; J90 Pleural effusion, not elsewhere classified; J98.11 Atelectasis; I48.91 Unspecified atrial fibrillation; E11.9 Type 2 diabetes mellitus without complications; I10 Essential (primary) hypertension; E78.5 Hyperlipidemia, unspecified; Z86.711 Personal history of pulmonary embolism; Z79.01 Long term (current) use of anticoagulants; Z92.21 Personal history of antineoplastic chemotherapy
CPT/HCPCS: 36415; 36600; 71045; 80053; 81001; 82803; 83605; 83690; 83880; 84145; 84484; 85025; 87040; 93005; 93010; 94762; 96365; 96375; 96376; 99285-25; G0378; J0780; J1100; J2405; J2543; J2550; J2765; J3010; J7050; J7120; P9612

== ENCOUNTER 2020-12-23 09:24 | Emergency (ER) | payer OTHER ==
[~2020-12-23] VITALS: Ht 172.7 cm; Wt 56.2 kg
[~2020-12-23 09:24] MED LIST changes: +DEXA4 PO; +ONDA8 PO; +OXYC5 PO
[2020-12-23 10:58] LABS: BASOPHILS ABSOLUTE AUTO 0.02 K/mm3 (0.00-0.23); BASOPHILS PERCENT AUTO 0 % (0-2); EOSINOPHILS ABSOLUTE AUTO 0.01 K/mm3 (0.00-0.68); EOSINOPHILS PERCENT AUTO 0 % (0-6); Hematocrit 46.9 % (33.0-51.0); Hemoglobin 15.1 g/dL (11.5-16.0); IMMATURE GRAN ABSOLUTE AUTO 0.08 K/mm3 (0.00-0.10); IMMATURE GRAN PERCENT AUTO 1 % (0-1); LYMPHOCYTES PERCENT AUTO 16 % (21-46); MONOCYTES ABSOLUTE AUTO 0.65 K/mm3 (0.16-1.47); MONOCYTES PERCENT AUTO 6 % (4-13); Mean Corpuscular HGB 29.8 pg (26.0-34.0); Mean Corpuscular HGB Conc 32.2 g/dL (31.5-36.5); Mean Corpuscular Volume 93 fL (80-100); Mean Platelet Volume 9.5 fL (9.1-12.4); NEUTROPHILS ABSOLUTE AUTO 8.32 K/mm3 (1.96-9.15); NEUTROPHILS PERCENT AUTO 77 % (41-73); Platelet Count 170 K/mm3 (150-400); RDW Coefficient Variation 17.5 % (11.7-14.2); RDW Standard Deviation 59.8 fL (35.1-46.3); Red Blood Cell Count 5.06 M/mm3 (3.80-5.20); White Blood Cell Count 10.78 K/mm3 (4.00-11.30)
[2020-12-23 11:07] LABS: International Normalized Ratio 1.09; Prothrombin Time Results 11.7 Sec (9.7-11.5)
[2020-12-23 11:16] LABS: Anion Gap 7 mmol/L (6-16); Blood Urea Nitrogen 31 mg/dL (8-24); Bun/Creatinine Ratio 43.8 (12.0-20.0); CO2, Blood 22 mmol/L (21-32); Calcium, Blood 8.3 mg/dL (8.5-10.1); Chloride, Blood 106 mmol/L (98-108); Creatinine, Blood 0.71 mg/dL (0.40-1.00); Glomerular Filtration Rate >60 (60-); Glucose, Blood 93 mg/dL (70-99); Potassium, Blood 4.7 mmol/L (3.5-5.5); Sodium, Blood 135 mmol/L (136-145)
== END 2020-12-23 12:25 | disposition home or self-care (01) ==
LOC: ER 09:24
PROVIDERS: Emergency Medicine
DX: C22.8 Malignant neoplasm of liver, primary, unspecified as to type (principal); Z51.5 Encounter for palliative care; Z79.01 Long term (current) use of anticoagulants; Z79.899 Other long term (current) drug therapy
CPT/HCPCS: 36415; 76705; 80048; 85025; 85610; 99284-25; J7030